=== PATIENT | male | born 1975 | race Caucasian/White ===

== ENCOUNTER 2017-10-14 20:12 | Emergency (ER) | payer SELFPAY ==
[~2017-10-14] VITALS: Ht 177.8 cm; Wt 82.0 kg
[2017-10-14 20:20] VITALS: BP 147/106
== END 2017-10-14 23:00 | disposition left against medical advice (07) ==
LOC: ER 21:01
DX: R53.1 Weakness (principal); Z53.21 Procedure and treatment not carried out due to patient leaving prior to being seen by health care provider